=== PATIENT | male | born 1960 | race Caucasian/White ===

== ENCOUNTER → 2023-07-07 13:54 | Outpatient (CLI) | payer OTHER, SELFPAY ==
--- NOTE | 2023-07-07 | DI.CT.S_ITS ---
PROCEDURE: CT CHEST WO CON INDICATIONS: History of lung cancer. TECHNIQUE: Noncontrast 5 mm thick sections acquired from the pulmonary apices to the posterior costophrenic angles. 1 mm lung window, 5 mm thick coronal and sagittal and 7 mm axial MIP reformats were then acquired. For radiation dose reduction, the following was used: automated exposure control, adjustment of mA and/or kV according to patient size. COMPARISON: Unable to obtain prior examinations for comparison. FINDINGS: Image quality: Suboptimal due to lack of intravenous contrast. Lower Neck: No enlarged lymph nodes. Thyroid: No thyroid nodules which require sonographic follow up, per consensus guidelines. Axillae: No enlarged lymph nodes. Chest Wall: Unremarkable. Bones: There are multiple right inferior rib fractures. Lungs and Pleura: There are surgical clips in the right hilar area. There is right hilar fullness, which may be secondary to scarring. Severe emphysema. No pneumothorax or pleural effusions. No consolidation or suspicious nodules. Heart: Heart size is normal. No pericardial effusion. Mild coronary artery calcification. Thoracic Vessels: The aorta and pulmonary arteries demonstrate normal size. Mediastinum and Sarah: No enlarged lymph nodes. Esophagus: No wall thickening. Small hiatal hernia. Upper Abdomen: There is a 3 cm simple appearing cyst in the left kidney. Visualized upper abdomen solid organs and bowel loops appear normal. IMPRESSION: 1. Suboptimal examination for oncology follow-up in the absence of IV contrast. 2. Postsurgical changes in the right hilar. Right hilar fullness is present, which could be due to scarring. Recommend obtained prior examinations for comparison. On follow-up imaging, contrast-enhanced CT is recommended. 3. Multiple old rib fractures. Dictated by: Vinh Stevens M.D. on 07/17/2023 at 17:52 Approved by: Vinh Stevens M.D. on 07/18/2023 at 7:38
== END ==
PROVIDERS: PCP Nurse Practitioner Family; Referring Provider Nurse Practitioner Family; Visit Provider Nurse Practitioner Family
DX: Z85.118 Personal history of other malignant neoplasm of bronchus and lung (principal); Z08 Encounter for follow-up examination after completed treatment for malignant neoplasm; J43.9 Emphysema, unspecified; I25.10 Atherosclerotic heart disease of native coronary artery without angina pectoris; K44.9 Diaphragmatic hernia without obstruction or gangrene; N28.1 Cyst of kidney, acquired
CPT/HCPCS: 71250